=== PATIENT | female | born 1990 ===

== ENCOUNTER 2019-07-28 03:34 | Inpatient (IN) | payer OTHER ==
[2019-07-28] MEDS ORDERED: MINERAL OIL 30 ML ORAL LIQD PO PRN (04:45)
[2019-07-28] MEDS ORDERED: LIDOCAINE (2%) 20 MG/1 ML VIAL 20 ML MDV INFILTRATI ONE (04:45)
[2019-07-28] MEDS ORDERED: ePHEDrine SULFATE 50 MG/1 ML INJ IV PRN (04:45)
[2019-07-28] MEDS ORDERED: LACTATED RINGERS 1,000 ML ONE (04:47)
[2019-07-28] MEDS ORDERED: LACTATED RINGERS 1,000 ML IV SCH (05:00)
[2019-07-28 05:11] LABS: Hematocrit 40.6 % (30.3-42.9); Hemoglobin 14.4 gm/dl (10.1-14.3); Mean Corpuscular HGB Conc 36 % (30-34); Mean Corpuscular Volume 95 fl (79-97); Platelet Count 111 K/mm3 (140-440); Red Blood Count 4.27 M/mm3 (3.65-5.03); Red Cell Distribution Width 14.1 % (13.2-15.2)
[2019-07-28] MEDS ORDERED: fentaNYL 100 MCG/2 ML INJ IV ONE (05:12)
[2019-07-28] MEDS ORDERED: fentaNYL 100 MCG/2 ML INJ ONE (05:15)
[2019-07-28] MEDS ORDERED: OXYTOCIN 20 UNIT/1000ML DRIP 20,000 MILLIUNITS/1,000 ML BAG IV ONE (05:19)
[2019-07-28] MEDS ORDERED: OXYTOCIN 20 UNIT/1000ML DRIP 20 UNITS/1,000 ML BAG IV SCH (06:00)
[2019-07-28] MEDS ORDERED: METHYLERGONOVINE MALEATE 0.2 MG/ML VIAL IM ONE (06:25)
[2019-07-28] MEDS ORDERED: LANOLIN/ZINC/DIMETHICONE (LANSINOH) 7 GM TP PRN (06:45)
[2019-07-28] MEDS ORDERED: oxyCODONE /ACETAMINOPHEN 5-325MG TAB PO PRN (06:45)
[2019-07-28] MEDS ORDERED: PROMETHAZINE 25 MG TAB PO PRN (06:45)
[2019-07-28] MEDS ORDERED: MAGNESIUM HYDROXIDE (MOM) ORAL LIQD UDC PO PRN (06:45)
[2019-07-28] MEDS ORDERED: WITCH HAZEL/ GLYCERIN PAD TP PRN (06:45)
[2019-07-28] MEDS ORDERED: ONDANSETRON 4 MG/2 ML INJ IV PRN (06:45)
[2019-07-28] MEDS ORDERED: diphenhydrAMINE 25 MG CAP PO PRN (06:45)
--- NOTE | 2019-07-28 06:54 | Procedure Note ---
OB Delivery Note - Delivery Date of Delivery: 07/28/19 (0611) Surgeon: IHSAN RYDER (CNM) Estimated blood loss: other (350cc) - Vaginal Delivery presentation: vertex Delivery position: OA (direct) Intrapartum events: none Delivery induction: none Delivery augmentation: rupture of membranes (0458, light meconium) Delivery monitor: external FHT, external uterine Route of delivery: Delivery placenta: spontaneous (0620, brock) Delivery cord: nuchal cord (x2, summersault manuver through cord to reduce 1st nuchal, 2nd nuchal reduced on perineum), 3 umbilical vessels Episiotomy: none Delivery laceration: none Anesthesia: none Delivery comments: of viable, alert, crying male infant, placed directly on maternal abdomen. [facility] team at bedside for delivery. Cord double clamped, cut by FOB after cessation of pulsation. Cord blood collected. Placenta delivered spontaneously, disposed per hospital policy. Uterus firm @ U-3, hemostasis maintained. Perineum intact. Mother and baby safe, stable and bonding well. Left in care of RN. - A at 1 minute: 8 at 5 minutes: 9 Infant Gender: Male (Wt: 4291 gms (9lbs 7ozs) 20 inches)
--- NOTE | 2019-07-28 07:00 | History and Physical Report ---
History of Present Illness Date of examination: 07/28/19 Date of admission: 07/28/19 05:08 Chief complaint: Active labor at term History of present illness: 29 yo, @ 39 wks, initiated care with [facility] at 7.3 wks gestation. Her has been uncomplicated with the exception of gestational thrombocytopenia. She reports to [facility] with reports of regular painful ctxs for past 1.2 hrs. She reports + FM. Denies any VB or LOF. Labs: O+, antibody negative; Hgb - 14.4; PAP smear normal; rubella immune; VDRL negative; urine culture negative; HBsAg negative; HIV negative; GC/Chlamydia negative; MSAFP/Multiple markers negative; 1 hr gtt- 113; GBS negative. Past History Past Medical History: no pertinent history Past Surgical History: no surgical history Family/Genetic History: none Social history: , lives with family, full code. denies: smoking, alcohol abuse, prescription drug abuse, IV drug use - Obstetrical History Expected Date of Delivery: 08/04/19 Actual Gestation: 39 Week(s) 0 Day(s) : 2 Para: 1 Hx # Term Pregnancies: 1 Number of Pregnancies: 0 Spontaneous Abortions: 0 Induced : 0 Number of Living Children: 1 #1 Infant Gender: Female year: 2,015 Birthweight: 3.345 kg Method of Delivery: Vaginal Gestational age at delivery: 38 Complications: none Medications and Allergies Allergies Allergy/AdvReac Type Severity Reaction Status Date / Time No Known Allergies Allergy Unverified 05/31/14 17:09 Home Medications Medication Instructions Recorded Confirmed Last Taken Type Acetaminophen/Codeine 1 tab PO Q6H PRN #15 tab 05/31/14 12/04/14 Unknown Rx [Acetaminophen-Codeine #3 TAB] Pnv Plus Multivit Tab 1 tab PO DAILY 12/04/14 12/06/14 Unknown History Ferrous Sulfate [Feosol 325 MG tab] 325 mg PO BID #60 tablet 12/05/14 Unknown Rx Ibuprofen [Motrin 600 MG tab] 600 mg PO Q6H #30 tablet 12/05/14 Unknown Rx oxyCODONE /ACETAMINOPHEN [Percocet 1 tab PO Q6H PRN #30 tablet 12/05/14 Unknown Rx 5/325 mg] Active Meds: Active Medications Bisacodyl (Dulcolax) 10 mg TX BID PRN PRN Reason: Constipation Diphenhydramine HCl (Benadryl) 25 mg PO Q6H PRN PRN Reason: Itching Ephedrine Sulfate (Ephedrine Sulfate) 10 mg IV Q2M PRN PRN Reason: Hypotension Ferrous Sulfate (Feosol) 325 mg PO QDAY [facility] Lactated Ringer's (Lactated Ringers) 1,000 mls @ 125 mls/hr IV DIRECT [facility]LL[facility] Oxytocin/Sodium Chloride (Pitocin/Ns 20 Unit/1000ml Drip) 20 units in 1,000 mls @ 250 mls/hr IV DIRECT ELLYN Ibuprofen (Ibuprofen) 600 mg PO Q6HR [facility] Magnesium Hydroxide (Milk Of Magnesia) 30 ml PO HS PRN PRN Reason: Constipation Mineral Oil (Mineral Oil) 30 ml PO QHS PRN PRN Reason: Constipation Multi-Ingredient Ointment (Lansinoh) 1 applic TP PRN PRN PRN Reason: Sore Nipples Multivitamins/Iron/Calcium ( Vitamin) 1 each PO QDAY [facility] Ondansetron HCl (Zofran) 4 mg IV Q8H PRN PRN Reason: Nausea And Vomiting Oxycodone/Acetaminophen (Percocet 5/325) 1 tab PO Q6H PRN PRN Reason: Pain, Moderate (4-6) Promethazine HCl (Phenergan) 25 mg PO Q6H PRN PRN Reason: Nausea And Vomiting Sodium Chloride (Sodium Chloride Flush Syringe 10 Ml) 10 ml IV PRN PRN PRN Reason: LINE FLUSH Witch Gloria/Glycerin (Tucks Pad) 1 each TP PRN PRN PRN Reason: Hemorrhoid/cleansing/soothing Review of Systems All systems: negative Genitourinary: contractions - Vital Signs Vital signs: Vital Signs Pulse BP 75 119/74 07/28/19 03:48 07/28/19 03:48 Temp Pulse Resp BP Pulse Ox 97.9 F 78 20 104/74 07/28/19 03:49 07/28/19 04:21 07/28/19 03:49 07/28/19 04:21 - Physical Exam Breasts: Positive: normal Cardiovascular: Regular rate Lungs: Positive: Normal air movement Abdomen: Positive: other (gravid) Genitourinary (Female): Positive: normal external genitalia, normal perenium Vagina: Positive: normal moisture Uterus: Positive: enlarged (S>D) Anus/Rectum: Positive: normal perianal skin Extremities: Positive: normal Deep Tendon Reflex Grade: Normal +2 - Obstetrical FHR: category 1 Uterine Contraction Monitor Mode: External Cervical Dilatation: 8 Cervical Effacement Percentage: 90 station: -1 Uterine Contraction Frequency (min): 2-3 Uterine Contraction Pattern: Irregular Uterine Tone Measurement Phase: Resting Uterine Contraction Intensity: Strong/Firm Results Result Diagrams: 07/28/19 04:42 Abnormal lab results 07/28/19 Range/Units 04:42 WBC 11.4 H (4.5-11.0) K/mm3 Hgb 14.4 H (10.1-14.3) gm/dl MCH 34 H (28-32) pg MCHC 36 H (30-34) % Plt Count 111 L (140-440) K/mm3 All other labs normal. Assessment and Plan - Patient Problems (1) Active labor at term Current Visit: No Status: Acute Plan to address problem: Admit to L & D Pain meds as desired Anticipate (2) Gestational thrombocytopenia Current Visit: Yes Status: Acute
[2019-07-28] MEDS: FERROUS SULFATE 325 MG TAB PO SCH (10:18)
[2019-07-28] MEDS: PRENATAL VIT27-FE FUMARATE-FOLIC ACID VIT TAB PO SCH (10:18)
[2019-07-28] MEDS: IBUPROFEN 600 MG TAB PO SCH ×3 (12:06→18:34)
[2019-07-28 19:38] LABS: Hematocrit 34.9 % (30.3-42.9); Hemoglobin 12.1 gm/dl (10.1-14.3)
[2019-07-29] MEDS: IBUPROFEN 600 MG TAB PO SCH (05:43)
[2019-07-29] MEDS ORDERED: DIPHtheria,PERTUSSIS(ACELL),TETANUS VACCINE/PF 0.5 ML VIAL IM ONE (06:00)
--- NOTE | 2019-07-29 10:28 | Progress Note ---
Assessment and Plan - Patient Problems (1) Status post normal vaginal delivery Current Visit: Yes Status: Acute Plan to address problem: D/C today F/U at in office in 6 wks for routine PP visit Subjective - Subjective Date of service: 07/29/19 Principal diagnosis: S/P ; PPD#1 Interval history: 29 yo, @ 39 wks, initiated care with [facility] at 7.3 wks gestation. Her has been uncomplicated with the exception of gestational thrombocytopenia. She reports to [facility] with reports of regular painful ctxs for past 1.2 hrs. She reports + FM. Denies any VB or LOF. Labs: O+, antibody negative; Hgb - 14.4; PAP smear normal; rubella immune; VDRL negative; urine culture negative; HBsAg negative; HIV negative; GC/Chlamydia negative; MSAFP/Multiple markers negative; 1 hr gtt- 113; GBS negative. Patient reports: appetite normal, voiding normally, pain well controlled, flatus , ambulating normally, other (Desires to go home today) Bulan: doing well, bottle feeding (and ) Objective - Vital Signs Latest vital signs: Vital Signs Temp Pulse Resp BP BP Pulse Ox 07/29/19 07:17 98.0 F 65 16 104/61 97 07/29/19 00:13 98.1 F 61 18 105/52 98 07/28/19 16:40 97.9 F 63 18 108/46 98 07/28/19 13:45 68 97/45 07/28/19 12:45 97.8 F 67 18 108/40 98 Intake and Output 07/28/19 07/29/19 07/29/19 23:59 07:59 15:59 Intake Total 600 240 Balance 600 240 Intake: Oral 240 Intake, Free Water 360 240 Other: Total, Intake Amount 240 # Voids Void 2 2 - Exam Breasts: Present: normal Cardiovascular: Present: Regular rate Lungs: Present: Normal air movement Abdomen: Present: soft Uterus: Present: firm, fundal height below umbilicus (U-4) Extremities: Present: normal Deep Tendon Reflex Grade: Normal +2
--- NOTE | 2019-07-29 10:29 | Discharge Summary ---
Providers - Providers Date of Admission: 07/28/19 05:08 Date of discharge: 07/29/19 (1200) Attending physician: CARLOS EGAN MD Primary care physician: CARLOS EGAN MD Hospitalization Reason for admission: active labor Delivery: Episiotomy: none Laceration: none Other procedures: none complications: none Discharge diagnosis: IUP at term delivered baby: male Hospital course: See admission H & P; OB delivery summary; PP progress notes Condition at discharge: Good Disposition: DC-01 TO HOME OR SELFCARE - Discharge Diagnoses (1) Status post normal vaginal delivery Status: Acute Plan - Provider Discharge Summary Activity: routine, no sex for 6 weeks, no heavy lifting 4 weeks, no strenuous exercise Diet: routine Instructions: routine Additional instructions: [] Smoking cessation referral if applicable(refer to patient education folder for contact #) [] Refer to [facility] Booklet Call your doctor immediately for: * Fever > 100.5 * Heavy vaginal bleeding ( >1 pad per hour) * Severe persistent headache * Shortness of breath * Reddened, hot, painful area to leg or breast - Follow up plan Follow up: CARLOS EGAN MD [Primary Care Provider] - 6 Weeks
[2019-07-29] MEDS: FERROUS SULFATE 325 MG TAB PO SCH (10:40)
[2019-07-29] MEDS: PRENATAL VIT27-FE FUMARATE-FOLIC ACID VIT TAB PO SCH (10:40)
[2019-07-29 14:19] VITALS: BP 112/71
== END 2019-07-29 14:48 | disposition home or self-care (01) | DRG 806 ==
LOC: TRG 03:34 → APU 03:43 → LD 04:19 → TRG 05:08 → OB 09:15
PROVIDERS: ADMIT Obstetrics & Gynecology; ATTEND Obstetrics & Gynecology
PROC: 10E0XZZ Delivery of Products of Conception, External Approach (ICD-10-PCS; principal; 2019-07-28)
PROC: 3E0234Z Introduction of Serum, Toxoid and Vaccine into Muscle, Percutaneous Approach (ICD-10-PCS; 2019-07-28)
DX: O77.0 Labor and delivery complicated by meconium in amniotic fluid (principal); O99.12 Other diseases of the blood and blood-forming organs and certain disorders involving the immune mechanism complicating childbirth; Z37.0 Single live birth; Z3A.39 39 weeks gestation of pregnancy; Z23 Encounter for immunization; D69.6 Thrombocytopenia, unspecified; O69.81X0 Labor and delivery complicated by cord around neck, without compression, not applicable or unspecified
CPT/HCPCS: 36415; 59025; 85014; 85018; 85027; 86592; 86850; 86900; 86901; 90715; G0378; J2210; J2590; J3010; J7120